=== PATIENT | male | born 1970 | race Caucasian/White ===

== ENCOUNTER 2016-10-05 17:21 | Emergency (ER) | payer MEDICARE, OTHER ==
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
[2016-10-05 17:39] VITALS: BP 181/113; PULSE 64; TEMP 98; BMI 34.4
[2016-10-05] MEDS ORDERED: IBUPROFEN 600 MG TABLET (FP) PO ONE ×2 (18:20→18:24)
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
== END 2016-10-05 20:01 | disposition home or self-care (01) ==
LOC: JERFT 17:21
DX: M54.5 Low back pain (principal); G89.29 Other chronic pain; R32 Unspecified urinary incontinence; F41.8 Other specified anxiety disorders; I10 Essential (primary) hypertension; E78.00 Pure hypercholesterolemia, unspecified; V43.52XA Car driver injured in collision with other type car in traffic accident, initial encounter; Y93.89 Activity, other specified; Y92.410 Unspecified street and highway as the place of occurrence of the external cause
CPT/HCPCS: 72100-TC; 99281-25

== ENCOUNTER 2023-11-01 21:30 | Emergency (ER) | payer BC, OTHER ==
[2023-11-01 21:36] VITALS: BP 160/98; PULSE 87; RESP 20; TEMP 98.3; BMI 34.2
[2023-11-01] MEDS: IBUPROFEN 600 MG TABLET (FP) PO ONE (21:53)
[2023-11-01] MEDS ORDERED: IBUPROFEN 600 MG TABLET (FP) PO ONE (21:54)
== END 2023-11-01 22:22 | disposition home or self-care (01) ==
LOC: JERFT 21:30
DX: M25.531 Pain in right wrist (principal); X50.9XXA Other and unspecified overexertion or strenuous movements or postures, initial encounter; Y92.810 Car as the place of occurrence of the external cause
CPT/HCPCS: 73110-TC-RT-FY; 73130-TC-RT-FY; 99283-25

== ENCOUNTER 2023-11-05 02:11 | Emergency (ER) | payer BC ==
[2023-11-05 02:19] VITALS: BP 153/98; PULSE 87; RESP 18; TEMP 98; BMI 34.2
[2023-11-05] MEDS ORDERED: KETOROLAC TROMETHAMINE 30 MG/1 ML VIAL ONE (03:35)
[2023-11-05] MEDS ORDERED: ACETAMINOPHEN 325 MG TABLET (FP) ONE (03:35)
[2023-11-05] MEDS: KETOROLAC TROMETHAMINE 30 MG/1 ML VIAL IM ONE (03:38)
[2023-11-05] MEDS: ACETAMINOPHEN 500 MG TABLET (FP) PO ONE (03:38)
[2023-11-05] MEDS ORDERED: ALBUTEROL SO4 HFA INHALER IH ONE (03:52)
== END 2023-11-05 04:45 | disposition home or self-care (01) ==
LOC: JER 02:11
PROC: 3E0233Z Introduction of Anti-inflammatory into Muscle, Percutaneous Approach (ICD-10-PCS; principal; 2023-11-05)
DX: M79.641 Pain in right hand (principal); M10.9 Gout, unspecified
CPT/HCPCS: 99284-25